=== PATIENT | male | born 1955 | race Caucasian/White ===

== ENCOUNTER 2016-10-11 23:10 | Emergency (ER) | payer BC ==
--- NOTE | 2016-10-11 23:18 | EDM.PDOC ---
ED HPI GENERAL MEDICAL PROBLEM - General Chief Complaint: General Stated Complaint: I have a headache, and my face is swollen Time Seen by Provider: 10/11/16 23:10 Source of Information: Reports: Patient History Limitations: Reports: No Limitations - History of Present Illness INITIAL COMMENTS - FREE TEXT/NARRATIVE: Patient presents with chief complaint of left cheek pain radiating to the head and down to the shoulder tender to palpation on second left upper molar Onset: Gradual Duration: Day(s): (Started hurting about 24 hours ago) Location: Reports: Face Quality: Reports: Ache, Stabbing, Throbbing Severity: Severe Improves with: Reports: None Worsens with: Reports: None Context: Reports: Sick Contact Associated Symptoms: Reports: No Other Symptoms - Related Data Allergies Allergy/AdvReac Type Severity Reaction Status Date / Time No Known Allergies Allergy Verified 10/11/16 23:18 Home Meds: Home Meds . [No Known Home Meds] 10/11/16 [History] ED ROS GENERAL - Review of Systems Review Of Systems: See Below Constitutional: Reports: Other (Pain left side of face) HEENT: Reports: No Symptoms Respiratory: Reports: No Symptoms Cardiovascular: Reports: No Symptoms Endocrine: Reports: No Symptoms GI/Abdominal: Reports: No Symptoms, Other (Sleep apnea wears a CPAP) : Reports: No Symptoms Musculoskeletal: Reports: No Symptoms Skin: Reports: No Symptoms Neurological: Reports: No Symptoms Psychiatric: Reports: No Symptoms ED EXAM, GENERAL - Physical Exam Exam: See Below Exam Limited By: No Limitations General Appearance: Alert, WD/WN, No Apparent Distress Ears: Normal External Exam, Normal Canal, Hearing Grossly Normal, Normal TMs Ear Exam: Bilateral Ear: Auricle Normal, Canal Normal, TM normal Nose: Normal Inspection, Normal Mucosa, No Blood Throat/Mouth: Other (Pain to palpation over left upper second) Head: Atraumatic, Normocephalic Neck: Normal Inspection, Supple, Non-Tender, Full Range of Motion Respiratory/Chest: No Respiratory Distress, Lungs Clear, Normal Breath Sounds, No Accessory Muscle Use, Chest Non-Tender Cardiovascular: Normal Peripheral Pulses, Regular Rate, Rhythm, No Edema, No Gallop, No JVD, No Murmur, No Rub GI/Abdominal: Normal Bowel Sounds, Soft, Non-Tender, No Organomegaly, No Distention, No Abnormal Bruit, No Mass Rectal (Males) Exam: Deferred Back Exam: Normal Inspection, Full Range of Motion, NT Extremities: Normal Inspection, Normal Range of Motion, Non-Tender, Normal Capillary Refill, No Pedal Edema Neurological: Alert, Oriented, CN II-XII Intact, Normal Cognition, Normal Gait, Normal Reflexes, No Motor/Sensory Deficits Psychiatric: Normal Affect, Normal Mood Skin Exam: Warm, Dry, Intact, Normal Color, No Rash Lymphatic: No Adenopathy Departure - Departure Time of Disposition: 23:53 Disposition: Home, Self-Care 01 Condition: Fair Clinical Impression: Apical abscess - Discharge Information Forms: ED Department Discharge Additional Instructions: Patient will be sent home on Augmentin and Toradol he is to see the dentist in the morning Care Plan Goals: He is instructed to return to the dentist Patient started on Augmentin 875 twice a day for 10 days and on Toradol 10 mg 1 tablet every 6 hours for pain control he was also given Dilaudid 1 mg IM he was instructed to go to the dentist in the morning
[2016-10-11] MEDS ORDERED: Ketorolac 60 MG/2 ML SDV IM ONE (23:21)
[2016-10-11] MEDS ORDERED: HYDROmorphone 1 MG/ML Syringe IM ONE (23:43)
[2016-10-11 23:50] VITALS: BP 162/85
== END 2016-10-12 00:21 | disposition home or self-care (01) ==
LOC: LL.ED 23:10
DX: K04.7 Periapical abscess without sinus (principal)
CPT/HCPCS: 96372; 99283; J1170; J1885

== ENCOUNTER 2021-05-03 13:32 | Emergency (ER) | payer MEDICARE, BC ==
[2021-05-03 14:48] LABS: CHLORIDE,CL 104 mmol/L (98-107); SODIUM,NA 139 mmol/L (136-145)
[2021-05-03 15:32] LABS: CORONAVIRUS COVID-19 NAA NEGATIVE (NEGATIVE); RESPIRATORY SYNCYTIAL VIR NAA NEGATIVE (NEGATIVE)
[2021-05-03 18:24] VITALS: BP 140/80; PULSE 65
== END 2021-05-03 16:34 | disposition home or self-care (01) ==
LOC: LL.ED 13:32
DX: J06.9 Acute upper respiratory infection, unspecified (principal); E78.00 Pure hypercholesterolemia, unspecified; E66.9 Obesity, unspecified; Z68.36 Body mass index [BMI] 36.0-36.9, adult; Z79.82 Long term (current) use of aspirin; Z87.891 Personal history of nicotine dependence; Z20.822 Contact with and (suspected) exposure to COVID-19
CPT/HCPCS: 0241U; 36415; 80053; 84484; 85027; 85379; 93005; 93010; 99283-25; 99284